=== PATIENT | female | born 1965 | race Caucasian/White ===

== ENCOUNTER → 2016-05-24 | Outpatient (CLI) | payer OTHER ==
[~2016-05-24] MED LIST: GADOBUTROL 10 ML VIAL IVP ONE
[2016-05-24 13:52] LABS: CREATININE 0.9 mg/dL (0.6-1.0); GLOMERULAR FILTRATION RATE > 60
--- NOTE | 2016-05-24 18:33 | MR ---
MRI Abdomen, Without and With Contrast May 24, 2016 Indication: Left adrenal nodule. Technique: Axial single shot fast spin echo, axial, and coronal 2-D T2-weighted FIESTA, axial T1 clark l echo, pre- and postcontrast dynamic T1 fat-suppressed LAVA imaging, and diffusion-weighted imaging in the axial plane. 10 mL of Gadavist were uneventfully intravenously administered. Comparison: CT of the abdomen and pelvis dated August 09, 2010. Findings: The well-circumscribed 2.6- x 2.0-cm left adrenal gland nodule is unchanged in size and mo rphology since 2010. The nodule homogeneously drops in signal on the [id number] T1 sequence charac teristic of a benign adrenal adenoma. The right adrenal gland is normal. The liver has generalized decreased attenuation on the [id number] T1 sequence characteristic of dif fuse mild hepatic steatosis. The liver is otherwise normal. Normal enhancement. No evidence of act priscila hepatitis or cirrhosis. Portal and hepatic veins are patent. No biliary dilation. The gallblad riaz is now surgically absent. Susceptibility artifact in the gallbladder fossa is indicative of surg ical clips. The common bile duct is normal caliber and tapers normally to the major papilla. No anne iary dilation or common bile duct stone. The spleen, pancreas, and bowel are normal. Right renal scarring and atrophy and mild hypertrophy of the left kidney are unchanged. No hydronephrosis. Bone marrow signal is normal. No edema, effusion, or ascites. Impression: 1. Benign left adrenal adenoma is unchanged in size since 2010. 2. No intraabdominal mass or inflammatory process. 3. Cholecystectomy. No common bile duct stone or biliary dilation. E:marli
== END ==
LOC: FIMAGING 12:19
PROVIDERS: ATTEND Internal Medicine Endocrinology, Diabetes & Metabolism
DX: D35.00 Benign neoplasm of unspecified adrenal gland (principal)
CPT/HCPCS: A9585